=== PATIENT | female | born 1965 | race Caucasian/White ===

== ENCOUNTER 2021-09-06 12:21 | Inpatient (IN) | payer BC ==
[2021-09-06] MEDS ORDERED: Ondansetron 4 MG/2 ML SDV IV PRN (13:29)
[2021-09-06] MEDS ORDERED: Benzonatate 100 MG Cap PO PRN (13:29)
[2021-09-06] MEDS ORDERED: guaiFENesin/Dextromethorphan 100-10 MG/5 ML Soln 10 ML Cup PO PRN (13:29)
[2021-09-06] MEDS ORDERED: LORazepam 2 MG/ML SDV IV PRN (13:29)
[2021-09-06] MEDS ORDERED: Acetaminophen 325 MG Tab PO PRN (13:29)
[2021-09-06] MEDS ORDERED: Sodium Chloride 0.9% 10 ML Syringe FLUSH PRN (13:29)
[2021-09-06] MEDS ORDERED: Ondansetron 4 MG Tab.DIS PO PRN (13:29)
[2021-09-06] MEDS: Promethazine 25 MG Tab PO PRN ×2 (14:16→21:08)
--- NOTE | 2021-09-06 15:38 | PCM.HP.2 ---
H&P History of Present Illness - General Date of Service: 09/06/21 Admit Problem/Dx: Admission Diagnosis/Problem Admission Diagnosis/Problem Pneumonia Source of Information: Patient History Limitations: Reports: No Limitations - History of Present Illness Initial Comments - Free Text/Narative: CC: The diarrhea was horrible HPI: Madeleine was sent as a direct admission for management of hypoxic COVID-19 pneumonia. She first noticed symptoms last Thursday, August 28. She had sinus congestion, runny nose, headache, fevers and some shortness of breath. Symptoms progressed over the next couple of days and she tested positive for Covid on August 30. Symptoms worsened over the weekend and she was treated with monoclonal antibodies 2 days ago. After the infusion of monoclonal antibodies she had significant nausea and vomiting overnight. This did finally resolve morning but then she developed diarrhea and has had diarrhea since. She went to the clinic yesterday and was given 2 L of IV fluid because of significant dehydration. She continued to have diarrhea overnight and went back to the clinic today. They noticed that she was hypoxic today and sent her to the hospital for direct admission and management of hypoxia. She reports that all of her presenting symptoms have essentially resolved and its mostly of the vomiting and diarrhea that persist and are giving her trouble. Work-up in the clinic included some small patchy infiltrates noted on the chest x-ray as well as the hypoxia. - Related Data Allergies/Adverse Reactions: Allergies Allergy/AdvReac Type Severity Reaction Status Date / Time Bleach (Sodium Hypochlorite) Allergy Rash Verified 09/06/21 13:34 Penicillins Allergy Hives Verified 09/06/21 13:34 Home Medications: Home Meds Clobetasol [Clobetasol Propionate 0.05%] 30 gm TOP BID 09/06/21 [History] Famotidine 20 mg PO QAM 09/06/21 [History] Famotidine 30 mg PO BEDTIME 09/06/21 [History] Past Medical History HEENT History: Reports: Allergic Rhinitis Cardiovascular History: Reports: SOB on Exertion Respiratory History: Reports: Other (See Below) Other Respiratory History: covid Gastrointestinal History: Reports: GERD Genitourinary History: Reports: None 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 Musculoskeletal History: Reports: None Neurological History: Reports: None Psychiatric History: Reports: None Endocrine/Metabolic History: Reports: None Hematologic History: Reports: None Immunologic History: Reports: None Oncologic (Cancer) History: Reports: None Dermatologic History: Reports: None - Infectious Disease History Infectious Disease History: Reports: None - Past Surgical History Head Surgeries/Procedures: Reports: None HEENT Surgical History: Reports: None Cardiovascular Surgical History: Reports: None Respiratory Surgical History: Reports: None GI Surgical History: Reports: Colonoscopy Female Surgical History: Reports: None Endocrine Surgical History: Reports: None Neurological Surgical History: Reports: None Musculoskeletal Surgical History: Reports: None Oncologic Surgical History: Reports: None Dermatological Surgical History: Reports: None Social & Family History - Family History Oncologic: Reports: Colon (father), Skin (mother with melanoma) - Tobacco Use Tobacco Use Status *Q: Never Tobacco User Second Hand Smoke Exposure: No - Caffeine Use Caffeine Use: Reports: Coffee - Recreational Drug Use Recreational Drug Use: No H&P Review of Systems - Review of Systems: Review Of Systems: See Below Free Text/Narrative: A complete 12 point review of systems was obtained. Pertinent positives and negatives are noted in the history of present illness. All other systems were reviewed and were negative except as noted. Exam - Exam Exam: See Below - Vital Signs Vital Signs: Last Vital Signs Temp 36.9 C 09/06/21 13:25 Pulse 66 09/06/21 13:25 Resp 16 09/06/21 13:25 BP 133/73 09/06/21 13:25 Pulse Ox 95 09/06/21 13:30 Weight: 98.43 kg - Exam Quality Assessment: Supplemental Oxygen General: Alert, Oriented, Cooperative. No: Mild Distress HEENT: Conjunctiva Clear, Mucosa Moist & [place]. No: Scleral Icterus Neck: Supple, Trachea Midline Lungs: Normal Respiratory Effort, Crackles (Mild diffuse dry sounding crackles especially in the lower half of both lung torres) Cardiovascular: Regular Rate, Regular Rhythm, Systolic Murmur GI/Abdominal Exam: Normal Bowel Sounds, Soft, Non-Tender, No Distention Back Exam: Normal Inspection, Full Range of Motion Extremities: No Pedal Edema. No: Increased Warmth Peripheral Pulses: 2+: Dorsalis Pedis (L), Dorsalis Pedis (R) Skin: Warm, Dry Neuro Extensive - Mental Status: Alert, Oriented x3, Nl Response to Commands Neuro Extensive - Motor, Sensory, Reflexes: No: Dysarthria, Abnormal Motor, Tremor Psychiatric: Alert, Normal Affect - Patient Data Lab Results Last 24 hrs: Laboratory Results - last 24 hr 09/06/21 09/06/21 09/06/21 Range/Units 14:09 14:09 14:09 WBC 3.0 L (4.5-11.0) K/uL RBC 4.44 (3.30-5.50) M/uL Hgb 13.0 (12.0-15.0) g/dL Hct 38.3 (36.0-48.0) % MCV 86 (80-98) fL MCH 29 (27-31) pg MCHC 34 (32-36) % Plt Count 200 (150-400) K/uL Neut % (Auto) 63.0 (36-66) % Lymph % (Auto) 26.6 (24-44) % [place] % (Auto) 10.1 H (2-6) % Eos % (Auto) 0.0 L (2-4) % Baso % (Auto) 0.3 (0-1) % D-Dimer, Quantitative 728.49 H (0.0-500.0) ng/mL Sodium 145 (140-148) mmol/L Potassium 3.1 L (3.6-5.2) mmol/L Chloride 107 (100-108) mmol/L Carbon Dioxide 28 (21-32) mmol/L Anion Gap 13.1 (5.0-14.0) mmol/L BUN 8 (7-18) mg/dL Creatinine 0.7 (0.6-1.0) mg/dL Est Cr Clr Drug Dosing 91.55 mL/min Estimated GFR (MDRD) > 60 (>60) Glucose 85 (74-106) mg/dL Calcium 8.3 L (8.5-10.1) mg/dL Total Bilirubin 0.4 (0.2-1.0) mg/dL AST 45 H (15-37) U/L ALT 39 (12-78) U/L Alkaline Phosphatase 59 (46-116) U/L C-Reactive Protein (0.0-0.3) mg/dL Total Protein 5.8 L (6.4-8.2) g/dL Albumin 3.0 L (3.4-5.0) g/dL Globulin 2.8 (2.3-3.5) g/dL Albumin/Globulin Ratio 1.1 L (1.2-2.2) 09/06/21 Range/Units 14:09 WBC (4.5-11.0) K/uL RBC (3.30-5.50) M/uL Hgb (12.0-15.0) g/dL Hct (36.0-48.0) % MCV (80-98) fL MCH (27-31) pg MCHC (32-36) % Plt Count (150-400) K/uL Neut % (Auto) (36-66) % Lymph % (Auto) (24-44) % Davison % (Auto) (2-6) % Eos % (Auto) (2-4) % Baso % (Auto) (0-1) % D-Dimer, Quantitative (0.0-500.0) ng/mL Sodium (140-148) mmol/L Potassium (3.6-5.2) mmol/L Chloride (100-108) mmol/L Carbon Dioxide (21-32) mmol/L Anion Gap (5.0-14.0) mmol/L BUN (7-18) mg/dL Creatinine (0.6-1.0) mg/dL Est Cr Clr Drug Dosing mL/min Estimated GFR (MDRD) (>60) Glucose (74-106) mg/dL Calcium (8.5-10.1) mg/dL Total Bilirubin (0.2-1.0) mg/dL AST (15-37) U/L ALT (12-78) U/L Alkaline Phosphatase (46-116) U/L C-Reactive Protein 2.10 H (0.0-0.3) mg/dL Total Protein (6.4-8.2) g/dL Albumin (3.4-5.0) g/dL Globulin (2.3-3.5) g/dL Albumin/Globulin Ratio (1.2-2.2) Result Diagrams: 09/06/21 14:09 09/06/21 14:09 Imaging Impressions Last 24 hrs: Chest x-ray reported to have mild patchy changes in both lower lungs Sepsis Event Note - Evaluation Sepsis Screening Result: No Definite Risk - Focused Exam Vital Signs: Vital Signs Temp Pulse Resp BP Pulse Ox 09/06/21 13:30 95 09/06/21 13:25 36.9 C 66 16 133/73 93 L *Q Meaningful Use (ADM) - VTE Risk Assess *Q Each Risk Factor Represents 1 Point: Age 41 - 59 years, Obesity ( BMI > 25 kg/m2), Serious lung disease including pneumonia Total Score 1 Point Risk Factors: 3 Each Risk Factor Represents 2 Points: None Total Score 2 Point Risk Factors: 0 Each Risk Factor Represents 3 Points: None Total Score 3 Point Risk Factors: 0 Each Risk Factor Represents 5 Points: None Total Score 5 Point Risk Factors: 0 Venous Thromboembolism Risk Factor Score *Q: 3 - Problem List (1) Pneumonia due to COVID-19 virus SNOMED Code(s): 319269564484656661 ICD Code: U07.1 - COVID-19; J12.82 - PNEUMONIA DUE TO CORONAVIRUS DISEASE 2 019 Status: Acute Current Visit: Yes (2) Acute respiratory failure due to COVID-19 SNOMED Code(s): 529468399 ICD Code: U07.1 - COVID-19; J96.00 - ACUTE RESPIRATORY FAILURE, UNSP W HYPOXIA OR HYPERCAPNIA Status: Acute Current Visit: Yes (3) Hypokalemia due to excessive gastrointestinal loss of potassium SNOMED Code(s): 61382872 ICD Code: E87.6 - HYPOKALEMIA Status: Acute Current Visit: Yes (4) Obesity with body mass index greater than 30 SNOMED Code(s): 357373637 ICD Code: E66.9 - OBESITY, UNSPECIFIED Status: Chronic Current Visit: Yes Problem List Initiated/Reviewed/Updated: Yes Orders Last 24hrs: Active Orders 24 hr Category Date Time Status Patient Status [ADT] Routine ADT 09/06/21 13:29 Active Oxygen Therapy [RC] PRN Care 09/06/21 13:29 Active Pulse Oximetry [RC] CONTINUOUS Care 09/06/21 13:30 Active Up With Assistance [RC] ASDIRECTED Care 09/06/21 13:29 Active Vital Signs [RC] Q4H Care 09/06/21 13:29 Active Regular Diet [DIET] Diet 09/06/21 Dinner Active COMPREHENSIVE METABOLIC PN,CMP [CHEM] Timed Lab 09/07/21 05:00 Ordered Acetaminophen [TylenoL] Med 09/06/21 13:29 Active 650 mg PO Q4H PRN Benzonatate [Tessalon Perles] Med 09/06/21 13:29 Active 100 mg PO TID PRN Dextromethorphan/guaiFENesin [Robitussin DM] Med 09/06/21 13:29 Active 10 ml PO Q4H PRN Enoxaparin [Lovenox] Med 09/06/21 15:00 Active 40 mg SUBCUT Q24H LORazepam [Ativan] Med 09/06/21 13:29 Active 0.5 mg IV Q6H PRN Ondansetron [Zofran ODT] Med 09/06/21 13:29 Active 4 mg PO Q6H PRN Ondansetron [Zofran] Med 09/06/21 13:29 Active 4 mg IV Q4H PRN Potassium Chloride [Klor-Con M20] Med 09/06/21 15:45 Ordered 40 meq PO BID Promethazine [Phenergan] Med 09/06/21 13:29 Active 25 mg PO Q6H PRN Remdesivir 100 mg Med 09/07/21 16:00 Ordered Sodium Chloride 0.9% [Normal Saline] 100 ml IV Q24H Remdesivir 200 mg Med 09/06/21 15:35 Ordered Sodium Chloride 0.9% [Normal Saline] 250 ml IV ONETIME Sodium Chloride 0.9% [Saline Flush] Med 09/06/21 13:29 Active 10 ml FLUSH ASDIRECTED PRN dexAMETHasone [Decadron] Med 09/06/21 15:00 Active 6 mg IVPUSH Q24H Isolation [COMM] Routine Oth 09/06/21 13:34 Ordered Saline Lock Insert [OM.PC] Routine Oth 09/06/21 13:29 Ordered Resuscitation Status Routine Resus Stat 09/06/21 13:29 Ordered Medication Orders Acetaminophen (Acetaminophen 325 Mg Tab) 650 mg PO Q4H PRN PRN Reason: Pain (Mild 1-3)/fever Benzonatate (Benzonatate 100 Mg Cap) 100 mg PO TID PRN PRN Reason: Cough Dexamethasone (Dexamethasone 4 Mg/Ml Sdv) 6 mg IVPUSH Q24H [facility] Enoxaparin Sodium (Enoxaparin 40 Mg/0.4 Ml Syringe) 40 mg SUBCUT Q24H [facility] Guaifenesin/Dextromethorphan (Guaifenesin/Dextromethorphan 100-10 Mg/5 Ml Soln 10 Ml Cup) 10 ml PO Q4H PRN PRN Reason: Cough Remdesivir 100 mg/ Sodium (Chloride) 100 mls @ 100 mls/hr IV Q24H [facility] Stop: 09/10/21 16:59 Remdesivir 200 mg/ Sodium (Chloride) 250 mls @ 250 mls/hr IV ONETIME ONE Stop: 09/06/21 15:36 Lorazepam (Lorazepam 2 Mg/Ml Sdv) 0.5 mg IV Q6H PRN PRN Reason: Nausea/Vomiting Ondansetron HCl (Ondansetron 4 Mg Tab.Dis) 4 mg PO Q6H PRN PRN Reason: Nausea able to take PO Ondansetron HCl (Ondansetron 4 Mg/2 Ml Sdv) 4 mg IV Q4H PRN PRN Reason: Nausea/Vomiting Potassium Chloride (Potassium Chloride 20 Meq Tab.Er) 40 meq PO BID [facility] Stop: 09/06/21 21:01 Promethazine HCl (Promethazine 25 Mg Tab) 25 mg PO Q6H PRN PRN Reason: Nausea able to take PO Last Admin: 09/06/21 14:16 Dose: 25 mg Documented by: MASOUD Sodium Chloride (Sodium Chloride 0.9% 10 Ml Syringe) 10 ml FLUSH ASDIRECTED PRN PRN Reason: Keep Vein Open Assessment/Plan Comment:: ASSESSMENT AND PLAN - COVID-19 pneumonia-complicated by acute respiratory failure with hypoxia. Symptoms present for 9 or 10 days with progression over the past 48 hours. She did receive monoclonal antibodies 2 days ago. She is now hypoxic. Vitals otherwise stable. Main risk factor for progression to severe disease is her obesity. We did review potential treatments for management of COVID-19 pneu monia and she was agreeable to dexamethasone and remdesivir. She did ask about ivermectin. I discussed that this is not an approved medication to treat this infection and the risks far outweigh any potential benefits. -Dexamethasone 6 mg every 24 hours (day1) -Remdesivir x5 days -Enoxaparin every 24 hours -Symptomatic management of cough -Supplement oxygen, wean as able -Covid isolation (symptom onset/positive test 08/28 and 08/30) Hypokalemia-likely due to extra gastrointestinal losses. -40 mEq by mouth now and at bedtime Obesity with BMI greater than 30- Maintenance issues - -DVT prophylaxis-enoxaparin -GI prophylaxis-H2 rhoda -Nutrition-regular -Stinson catheter-not indicated CODE STATUS -full code Admission justification -this patient will be admitted for inpatient services and is medically appropriate meeting medical necessity for inpatient admission as outlined in my documentation. I reasonably expect the patient will require inpatient services that span a period time over 2 midnights. I reasonably expect this patient to be discharged or transferred within 96 hours after admission to the [facility]. Disposition -I anticipate discharge home after the hospital stay Primary care physician -Dr. Jose Adams M.D. - Mortality Measure Prognosis:: Good
[2021-09-06] MEDS ORDERED: REMDESIVIR 200 MG in Sodium Chloride 0.9% 250 ML IV ONE (16:00)
[2021-09-06] MEDS: Dexamethasone 4 MG/ML SDV IVPUSH SCH (16:30)
[2021-09-06] MEDS: Potassium Chloride 20 MEQ Tab.ER PO SCH ×2 (16:30→20:58)
[2021-09-06] MEDS: Enoxaparin 40 MG/0.4 ML Syringe SUBCUT SCH (16:30)
[2021-09-07] MEDS: Promethazine 25 MG Tab PO PRN (05:51)
--- NOTE | 2021-09-07 11:21 | PCM.PN ---
- General Info Date of Service: 09/07/21 Subjective Update: No acute events overnight. No fevers. Still requiring 2 L of oxygen but otherwise stable. Mild nausea and mild diarrhea this morning but much improved. Tolerating treatment so far. Follow-up labs unremarkable. - Review of Systems General: Denies: Fever Gastrointestinal: Reports: Diarrhea - Patient Data Vitals - Most Recent: Last Vital Signs Temp 36.3 C 09/07/21 10:36 Pulse 64 09/07/21 10:36 Resp 18 09/07/21 10:36 BP 111/81 09/07/21 10:36 Pulse Ox 93 L 09/07/21 10:36 Weight - Most Recent: 98.43 kg I&O - Last 24 Hours: Intake & Output 09/06/21 09/07/21 09/07/21 22:59 06:59 14:59 Intake Total 300 500 Output Total 200 350 100 Balance -200 -50 400 Lab Results Last 24 Hours: Laboratory Results - last 24 hr 09/06/21 09/06/21 09/06/21 Range/Units 14:09 14:09 14:09 WBC 3.0 L (4.5-11.0) K/uL RBC 4.44 (3.30-5.50) M/uL Hgb 13.0 (12.0-15.0) g/dL Hct 38.3 (36.0-48.0) % MCV 86 (80-98) fL MCH 29 (27-31) pg MCHC 34 (32-36) % Plt Count 200 (150-400) K/uL Neut % (Auto) 63.0 (36-66) % Lymph % (Auto) 26.6 (24-44) % [place] % (Auto) 10.1 H (2-6) % Eos % (Auto) 0.0 L (2-4) % Baso % (Auto) 0.3 (0-1) % D-Dimer, Quantitative 728.49 H (0.0-500.0) ng/mL Sodium 145 (140-148) mmol/L Potassium 3.1 L (3.6-5.2) mmol/L Chloride 107 (100-108) mmol/L Carbon Dioxide 28 (21-32) mmol/L Anion Gap 13.1 (5.0-14.0) mmol/L BUN 8 (7-18) mg/dL Creatinine 0.7 (0.6-1.0) mg/dL Est Cr Clr Drug Dosing 91.55 mL/min Estimated GFR (MDRD) > 60 (>60) Glucose 85 (74-106) mg/dL Calcium 8.3 L (8.5-10.1) mg/dL Total Bilirubin 0.4 (0.2-1.0) mg/dL AST 45 H (15-37) U/L ALT 39 (12-78) U/L Alkaline Phosphatase 59 (46-116) U/L C-Reactive Protein (0.0-0.3) mg/dL Total Protein 5.8 L (6.4-8.2) g/dL Albumin 3.0 L (3.4-5.0) g/dL Globulin 2.8 (2.3-3.5) g/dL Albumin/Globulin Ratio 1.1 L (1.2-2.2) 09/06/21 09/07/21 Range/Units 14:09 04:20 WBC (4.5-11.0) K/uL RBC (3.30-5.50) M/uL Hgb (12.0-15.0) g/dL Hct (36.0-48.0) % MCV (80-98) fL MCH (27-31) pg MCHC (32-36) % Plt Count (150-400) K/uL Neut % (Auto) (36-66) % Lymph % (Auto) (24-44) % [place] % (Auto) (2-6) % Eos % (Auto) (2-4) % Baso % (Auto) (0-1) % D-Dimer, Quantitative (0.0-500.0) ng/mL Sodium 147 (140-148) mmol/L Potassium 4.1 (3.6-5.2) mmol/L Chloride 109 H (100-108) mmol/L Carbon Dioxide 27 (21-32) mmol/L Anion Gap 15.1 H (5.0-14.0) mmol/L BUN 12 (7-18) mg/dL Creatinine 0.7 (0.6-1.0) mg/dL Est Cr Clr Drug Dosing 91.55 mL/min Estimated GFR (MDRD) > 60 (>60) Glucose 109 H (74-106) mg/dL Calcium 8.2 L (8.5-10.1) mg/dL Total Bilirubin 0.3 (0.2-1.0) mg/dL AST 41 H (15-37) U/L ALT 43 (12-78) U/L Alkaline Phosphatase 57 (46-116) U/L C-Reactive Protein 2.10 H (0.0-0.3) mg/dL Total Protein 5.5 L (6.4-8.2) g/dL Albumin 2.7 L (3.4-5.0) g/dL Globulin 2.8 (2.3-3.5) g/dL Albumin/Globulin Ratio 1.0 L (1.2-2.2) Med Orders - Current: Current Medications Acetaminophen (Acetaminophen 325 Mg Tab) 650 mg PO Q4H PRN PRN Reason: Pain (Mild 1-3)/fever Benzonatate (Benzonatate 100 Mg Cap) 100 mg PO TID PRN PRN Reason: Cough Dexamethasone (Dexamethasone 4 Mg/Ml Sdv) 6 mg IVPUSH Q24H [facility] Last Admin: 09/06/21 16:30 Dose: 6 mg Documented by: Enoxaparin Sodium (Enoxaparin 40 Mg/0.4 Ml Syringe) 40 mg SUBCUT Q24H [facility] Last Admin: 09/06/21 16:30 Dose: 40 mg Documented by: Famotidine (Famotidine 20 Mg Tab) 20 mg PO QAM [facility] Guaifenesin/Dextromethorphan (Guaifenesin/Dextromethorphan 100-10 Mg/5 Ml Soln 10 Ml Cup) 10 ml PO Q4H PRN PRN Reason: Cough Remdesivir 100 mg/ Sodium (Chloride) 100 mls @ 100 mls/hr IV Q24H [facility] Stop: 09/10/21 16:59 Lorazepam (Lorazepam 2 Mg/Ml Sdv) 0.5 mg IV Q6H PRN PRN Reason: Nausea/Vomiting Non-Formulary Medication (Famotidine [Famotidine]) 30 mg PO BEDTIME [facility] Ondansetron HCl (Ondansetron 4 Mg Tab.Dis) 4 mg PO Q6H PRN PRN Reason: Nausea able to take PO Ondansetron HCl (Ondansetron 4 Mg/2 Ml Sdv) 4 mg IV Q4H PRN PRN Reason: Nausea/Vomiting Promethazine HCl (Promethazine 25 Mg Tab) 25 mg PO Q6H PRN PRN Reason: Nausea able to take PO Last Admin: 09/07/21 05:51 Dose: 25 mg Documented by: Sodium Chloride (Sodium Chloride 0.9% 10 Ml Syringe) 10 ml FLUSH ASDIRECTED PRN PRN Reason: Keep Vein Open Discontinued Medications Remdesivir 200 mg/ Sodium (Chloride) 250 mls @ 250 mls/hr IV ONETIME ONE Stop: 09/06/21 16:59 Last Admin: 09/06/21 16:30 Dose: 250 mls/hr Documented by: Potassium Chloride (Potassium Chloride 20 Meq Tab.Er) 40 meq PO BID [facility] Stop: 09/06/21 21:01 Last Admin: 09/06/21 20:58 Dose: 40 meq Documented by: - Exam Quality Assessment: Supplemental Oxygen General: Alert, Oriented, Cooperative, No Acute Distress Lungs: Normal Respiratory Effort GI/Abdominal Exam: Soft, No Distention Extremities: No Pedal Edema Psy/Mental Status: Alert, Normal Affect - Patient Data Lab Results Last 24 hrs: Laboratory Results - last 24 hr 09/06/21 09/06/21 09/06/21 Range/Units 14:09 14:09 14:09 WBC 3.0 L (4.5-11.0) K/uL RBC 4.44 (3.30-5.50) M/uL Hgb 13.0 (12.0-15.0) g/dL Hct 38.3 (36.0-48.0) % MCV 86 (80-98) fL MCH 29 (27-31) pg MCHC 34 (32-36) % Plt Count 200 (150-400) K/uL Neut % (Auto) 63.0 (36-66) % Lymph % (Auto) 26.6 (24-44) % [place] % (Auto) 10.1 H (2-6) % Eos % (Auto) 0.0 L (2-4) % Baso % (Auto) 0.3 (0-1) % D-Dimer, Quantitative 728.49 H (0.0-500.0) ng/mL Sodium 145 (140-148) mmol/L Potassium 3.1 L (3.6-5.2) mmol/L Chloride 107 (100-108) mmol/L Carbon Dioxide 28 (21-32) mmol/L Anion Gap 13.1 (5.0-14.0) mmol/L BUN 8 (7-18) mg/dL Creatinine 0.7 (0.6-1.0) mg/dL Est Cr Clr Drug Dosing 91.55 mL/min Estimated GFR (MDRD) > 60 (>60) Glucose 85 (74-106) mg/dL Calcium 8.3 L (8.5-10.1) mg/dL Total Bilirubin 0.4 (0.2-1.0) mg/dL AST 45 H (15-37) U/L ALT 39 (12-78) U/L Alkaline Phosphatase 59 (46-116) U/L C-Reactive Protein (0.0-0.3) mg/dL Total Protein 5.8 L (6.4-8.2) g/dL Albumin 3.0 L (3.4-5.0) g/dL Globulin 2.8 (2.3-3.5) g/dL Albumin/Globulin Ratio 1.1 L (1.2-2.2) 09/06/21 09/07/21 Range/Units 14:09 04:20 WBC (4.5-11.0) K/uL RBC (3.30-5.50) M/uL Hgb (12.0-15.0) g/dL Hct (36.0-48.0) % MCV (80-98) fL MCH (27-31) pg MCHC (32-36) % Plt Count (150-400) K/uL Neut % (Auto) (36-66) % Lymph % (Auto) (24-44) % [place] % (Auto) (2-6) % Eos % (Auto) (2-4) % Baso % (Auto) (0-1) % D-Dimer, Quantitative (0.0-500.0) ng/mL Sodium 147 (140-148) mmol/L Potassium 4.1 (3.6-5.2) mmol/L Chloride 109 H (100-108) mmol/L Carbon Dioxide 27 (21-32) mmol/L Anion Gap 15.1 H (5.0-14.0) mmol/L BUN 12 (7-18) mg/dL Creatinine 0.7 (0.6-1.0) mg/dL Est Cr Clr Drug Dosing 91.55 mL/min Estimated GFR (MDRD) > 60 (>60) Glucose 109 H (74-106) mg/dL Calcium 8.2 L (8.5-10.1) mg/dL Total Bilirubin 0.3 (0.2-1.0) mg/dL AST 41 H (15-37) U/L ALT 43 (12-78) U/L Alkaline Phosphatase 57 (46-116) U/L C-Reactive Protein 2.10 H (0.0-0.3) mg/dL Total Protein 5.5 L (6.4-8.2) g/dL Albumin 2.7 L (3.4-5.0) g/dL Globulin 2.8 (2.3-3.5) g/dL Albumin/Globulin Ratio 1.0 L (1.2-2.2) Result Diagrams: 09/06/21 14:09 09/07/21 04:20 Sepsis Event Note - Evaluation Sepsis Screening Result: No Definite Risk - Focused Exam Vital Signs: Vital Signs Temp Pulse Resp BP Pulse Ox 09/07/21 10:36 36.3 C 64 18 111/81 93 L 09/07/21 07:22 94 L 09/07/21 07:00 36.3 C 61 18 127/72 95 09/07/21 03:00 36.7 C 62 16 142/73 H 94 L 09/07/21 01:30 94 L - Problem List & Annotations (1) Pneumonia due to COVID-19 virus SNOMED Code(s): 033829464380393131 Code(s): U07.1 - COVID-19; J12.82 - PNEUMONIA DUE TO CORONAVIRUS DISEASE 2019 Status: Acute Current Visit: Yes (2) Acute respiratory failure due to COVID-19 SNOMED Code(s): 679661082 Code(s): U07.1 - COVID-19; J96.00 - ACUTE RESPIRATORY FAILURE, UNSP W HYPOXIA OR HYPERCAPNIA Status: Acute Current Visit: Yes (3) Hypokalemia due to excessive gastrointestinal loss of potassium SNOMED Code(s): 45811065 Code(s): E87.6 - HYPOKALEMIA Status: Acute Current Visit: Yes (4) Obesity with body mass index greater than 30 SNOMED Code(s): 646234538 Code(s): E66.9 - OBESITY, UNSPECIFIED Status: Chronic Current Visit: Yes - Problem List Review Problem List Initiated/Reviewed/Updated: Yes - My Orders Last 24 Hours: My Active Orders 09/06/21 13:29 Patient Status [ADT] Routine Oxygen Therapy [RC] PRN Up With Assistance [RC] ASDIRECTED Vital Signs [RC] Q4H Acetaminophen [TylenoL] 650 mg PO Q4H PRN Benzonatate [Tessalon Perles] 100 mg PO TID PRN Dextromethorphan/guaiFENesin [Robitussin DM] 10 ml PO Q4H PRN LORazepam [Ativan] 0.5 mg IV Q6H PRN Ondansetron [Zofran ODT] 4 mg PO Q6H PRN Ondansetron [Zofran] 4 mg IV Q4H PRN Promethazine [Phenergan] 25 mg PO Q6H PRN Sodium Chloride 0.9% [Saline Flush] 10 ml FLUSH ASDIRECTED PRN Saline Lock Insert [OM.PC] Routine Resuscitation Status Routine 09/06/21 13:30 Pulse Oximetry [RC] CONTINUOUS 09/06/21 13:34 Isolation [COMM] Routine 09/06/21 15:00 Enoxaparin [Lovenox] 40 mg SUBCUT Q24H dexAMETHasone [Decadron] 6 mg IVPUSH Q24H 09/06/21 Dinner Regular Diet [DIET] 09/07/21 12:00 Famotidine [Pepcid] 20 mg PO QAM 09/07/21 16:00 Remdesivir 100 mg Sodium Chloride 0.9% [Normal Saline] 100 ml IV Q24H 09/07/21 21:00 Famotidine [Famotidine] 30 mg PO BEDTIME 09/08/21 05:00 CBC W/O DIFF,HEMOGRAM [HEME] Timed (1) COMPREHENSIVE METABOLIC PN,CMP [CHEM] Timed CRP [C-REACTIVE PROTEIN] [CHEM] Timed D-DIMER QUANTITATIVE [COAG] Timed - Plan Plan:: ASSESSMENT AND PLAN - COVID-19 pneumonia-complicated by acute respiratory failure with hypoxia. She did receive monoclonal antibodies 09/04. Hypoxic but otherwise stable. Feeling a little better today. -Dexamethasone 6 mg every 24 hours (day2) -Remdesivir x5 days -Enoxaparin every 24 hours -Symptomatic management of cough -Supplement oxygen, wean as able -Covid isolation (symptom onset/positive test 08/28 and 08/30) Hypokalemia-likely due to extra gastrointestinal losses. Improved with supplementation. Obesity with BMI greater than 30- Maintenance issues - -DVT prophylaxis-enoxaparin -GI prophylaxis-H2 rhoda -Nutrition-regular Disposition -I anticipate discharge home after the hospital stay Primary care physician -Dr. Jose Adams M.D.
[2021-09-07] MEDS: Famotidine 20 MG Tab PO SCH ×2 (13:28→20:36)
[2021-09-07] MEDS: REMDESIVIR 100 MG in Sodium Chloride 0.9% 100 ML IV SCH (17:55)
[2021-09-07] MEDS: Enoxaparin 40 MG/0.4 ML Syringe SUBCUT SCH (17:55)
[2021-09-07] MEDS: Dexamethasone 4 MG/ML SDV IVPUSH SCH (17:56)
[2021-09-08] MEDS: Famotidine 20 MG Tab PO SCH ×2 (08:15→20:54)
--- NOTE | 2021-09-08 11:54 | PCM.PN ---
- General Info Date of Service: 09/08/21 Subjective Update: No acute events overnight. Shortness of breath slowly improving. Still requiring 1 L of supplemental oxygen which is better than yesterday. Nausea and diarrhea have resolved. Appetite good. No fevers. Tolerating remdesivir and steroids. D-dimer is now normal and CRP is nearly normal. Functional Status: Reports: Pain Controlled, Tolerating Diet - Review of Systems General: Denies: Fever - Patient Data Vitals - Most Recent: Last Vital Signs Temp 35.9 C L 09/08/21 10:32 Pulse 66 09/08/21 10:32 Resp 18 09/08/21 10:32 BP 129/71 09/08/21 10:32 Pulse Ox 92 L 09/08/21 10:32 Weight - Most Recent: 98.43 kg I&O - Last 24 Hours: Intake & Output 09/07/21 09/08/21 09/08/21 22:59 06:59 14:59 Intake Total 600 300 260 Balance 600 300 260 Lab Results Last 24 Hours: Laboratory Results - last 24 hr 09/08/21 09/08/21 09/08/21 Range/Units 04:10 04:10 04:10 WBC 2.4 L (4.5-11.0) K/uL RBC 4.48 (3.30-5.50) M/uL Hgb 12.8 (12.0-15.0) g/dL Hct 39.4 (36.0-48.0) % MCV 88 (80-98) fL MCH 29 (27-31) pg MCHC 33 (32-36) % Plt Count 251 (150-400) K/uL D-Dimer, Quantitative 482.40 (0.0-500.0) ng/mL Sodium 149 H (140-148) mmol/L Potassium 4.3 (3.6-5.2) mmol/L Chloride 111 H (100-108) mmol/L Carbon Dioxide 27 (21-32) mmol/L Anion Gap 15.3 H (5.0-14.0) mmol/L BUN 19 H D (7-18) mg/dL Creatinine 0.8 (0.6-1.0) mg/dL Est Cr Clr Drug Dosing 80.11 mL/min Estimated GFR (MDRD) > 60 (>60) Glucose 152 H (74-106) mg/dL Calcium 8.3 L (8.5-10.1) mg/dL Total Bilirubin 0.2 (0.2-1.0) mg/dL AST 37 (15-37) U/L ALT 63 (12-78) U/L Alkaline Phosphatase 60 (46-116) U/L C-Reactive Protein 0.70 H (0.0-0.3) mg/dL Total Protein 5.7 L (6.4-8.2) g/dL Albumin 2.8 L (3.4-5.0) g/dL Globulin 2.9 (2.3-3.5) g/dL Albumin/Globulin Ratio 1.0 L (1.2-2.2) Med Orders - Current: Current Medications Acetaminophen (Acetaminophen 325 Mg Tab) 650 mg PO Q4H PRN PRN Reason: Pain (Mild 1-3)/fever Benzonatate (Benzonatate 100 Mg Cap) 100 mg PO TID PRN PRN Reason: Cough Dexamethasone (Dexamethasone 2 Mg Tab) 6 mg PO Q24H [facility] Enoxaparin Sodium (Enoxaparin 40 Mg/0.4 Ml Syringe) 40 mg SUBCUT Q24H [facility] Last Admin: 09/07/21 17:55 Dose: 40 mg Documented by: Famotidine (Famotidine 20 Mg Tab) 30 mg PO BEDTIME [facility] Last Admin: 09/07/21 20:36 Dose: 30 mg Documented by: Famotidine (Famotidine 20 Mg Tab) 20 mg PO QAM [facility] Last Admin: 09/08/21 08:15 Dose: 20 mg Documented by: Guaifenesin/Dextromethorphan (Guaifenesin/Dextromethorphan 100-10 Mg/5 Ml Soln 10 Ml Cup) 10 ml PO Q4H PRN PRN Reason: Cough Last Admin: 09/08/21 08:25 Dose: 10 ml Documented by: Remdesivir 100 mg/ Sodium (Chloride) 100 mls @ 100 mls/hr IV Q24H [facility] Stop: 09/10/21 16:59 Last Admin: 09/07/21 17:55 Dose: 100 mls/hr Documented by: Lorazepam (Lorazepam 2 Mg/Ml Sdv) 0.5 mg IV Q6H PRN PRN Reason: Nausea/Vomiting Ondansetron HCl (Ondansetron 4 Mg Tab.Dis) 4 mg PO Q6H PRN PRN Reason: Nausea able to take PO Ondansetron HCl (Ondansetron 4 Mg/2 Ml Sdv) 4 mg IV Q4H PRN PRN Reason: Nausea/Vomiting Promethazine HCl (Promethazine 25 Mg Tab) 25 mg PO Q6H PRN PRN Reason: Nausea able to take PO Last Admin: 09/07/21 05:51 Dose: 25 mg Documented by: Sodium Chloride (Sodium Chloride 0.9% 10 Ml Syringe) 10 ml FLUSH ASDIRECTED PRN PRN Reason: Keep Vein Open Discontinued Medications Dexamethasone (Dexamethasone 4 Mg/Ml Sdv) 6 mg IVPUSH Q24H [facility] Last Admin: 09/07/21 17:56 Dose: 6 mg Documented by: Remdesivir 200 mg/ Sodium (Chloride) 250 mls @ 250 mls/hr IV ONETIME ONE Stop: 09/06/21 16:59 Last Admin: 09/06/21 16:30 Dose: 250 mls/hr Documented by: Potassium Chloride (Potassium Chloride 20 Meq Tab.Er) 40 meq PO BID [facility] Stop: 09/06/21 21:01 Last Admin: 09/06/21 20:58 Dose: 40 meq Documented by: - Exam Quality Assessment: Supplemental Oxygen General: Alert, Oriented, Cooperative, No Acute Distress Lungs: Normal Respiratory Effort, Crackles (few both lower lungs) Cardiovascular: Regular Rate, Regular Rhythm GI/Abdominal Exam: Soft, No Distention Extremities: No Pedal Edema Skin: Warm, Dry Psy/Mental Status: Alert, Normal Affect - Patient Data Lab Results Last 24 hrs: Laboratory Results - last 24 hr 09/08/21 09/08/21 09/08/21 Range/Units 04:10 04:10 04:10 WBC 2.4 L (4.5-11.0) K/uL RBC 4.48 (3.30-5.50) M/uL Hgb 12.8 (12.0-15.0) g/dL Hct 39.4 (36.0-48.0) % MCV 88 (80-98) fL MCH 29 (27-31) pg MCHC 33 (32-36) % Plt Count 251 (150-400) K/uL D-Dimer, Quantitative 482.40 (0.0-500.0) ng/mL Sodium 149 H (140-148) mmol/L Potassium 4.3 (3.6-5.2) mmol/L Chloride 111 H (100-108) mmol/L Carbon Dioxide 27 (21-32) mmol/L Anion Gap 15.3 H (5.0-14.0) mmol/L BUN 19 H D (7-18) mg/dL Creatinine 0.8 (0.6-1.0) mg/dL Est Cr Clr Drug Dosing 80.11 mL/min Estimated GFR (MDRD) > 60 (>60) Glucose 152 H (74-106) mg/dL Calcium 8.3 L (8.5-10.1) mg/dL Total Bilirubin 0.2 (0.2-1.0) mg/dL AST 37 (15-37) U/L ALT 63 (12-78) U/L Alkaline Phosphatase 60 (46-116) U/L C-Reactive Protein 0.70 H (0.0-0.3) mg/dL Total Protein 5.7 L (6.4-8.2) g/dL Albumin 2.8 L (3.4-5.0) g/dL Globulin 2.9 (2.3-3.5) g/dL Albumin/Globulin Ratio 1.0 L (1.2-2.2) Result Diagrams: 09/08/21 04:10 09/08/21 04:10 Sepsis Event Note - Evaluation Sepsis Screening Result: No Definite Risk - Focused Exam Vital Signs: Vital Signs Temp Pulse Resp BP Pulse Ox 09/08/21 10:32 35.9 C L 66 18 129/71 92 L 09/08/21 07:48 93 L 09/08/21 07:00 36.1 C 68 18 139/89 92 L 09/08/21 03:09 92 L 09/08/21 03:00 36.4 C 65 16 125/68 93 L - Problem List & Annotations (1) Pneumonia due to COVID-19 virus SNOMED Code(s): 700980977322311900 Code(s): U07.1 - COVID-19; J12.82 - PNEUMONIA DUE TO CORONAVIRUS DISEASE 2019 Status: Acute Current Visit: Yes (2) Acute respiratory failure due to COVID-19 SNOMED Code(s): 275468376 Code(s): U07.1 - COVID-19; J96.00 - ACUTE RESPIRATORY FAILURE, UNSP W HYPOXIA OR HYPERCAPNIA Status: Acute Current Visit: Yes (3) Hypokalemia due to excessive gastrointestinal loss of potassium SNOMED Code(s): 29745814 Code(s): E87.6 - HYPOKALEMIA Status: Acute Current Visit: Yes (4) Obesity with body mass index greater than 30 SNOMED Code(s): 946875059 Code(s): E66.9 - OBESITY, UNSPECIFIED Status: Chronic Current Visit: Yes - Problem List Review Problem List Initiated/Reviewed/Updated: Yes - My Orders Last 24 Hours: My Active Orders 09/07/21 12:00 Famotidine [Pepcid] 20 mg PO QAM 09/07/21 16:00 Remdesivir 100 mg Sodium Chloride 0.9% [Normal Saline] 100 ml IV Q24H 09/07/21 21:00 Famotidine [Pepcid] 30 mg PO BEDTIME 09/08/21 15:00 dexAMETHasone 6 mg PO Q24H 09/09/21 05:00 COMPREHENSIVE METABOLIC PN,CMP [CHEM] Timed - Plan Plan:: ASSESSMENT AND PLAN - COVID-19 pneumonia-complicated by acute respiratory failure with hypoxia. She did receive monoclonal antibodies 09/04. Still mildly hypoxic but slowly improving. D-dimer and CRP are normal or nearly normal. -Dexamethasone 6 mg every 24 hours (day3) -Remdesivir x5 days -Enoxaparin every 24 hours -Symptomatic management of cough -Supplement oxygen, wean as able -Covid isolation (symptom onset/positive test 08/28 and 08/30) Hypokalemia-likely due to extra gastrointestinal losses. Improved with supplementation. Obesity with BMI greater than 30- Maintenance issues - -DVT prophylaxis-enoxaparin -GI prophylaxis-H2 rhoda -Nutrition-regular Disposition -I anticipate discharge home after the hospital stay, possibly in the next day or 2 with her current trend towards improvement Primary care physician -Dr. Jose Adams M.D.
[2021-09-08] MEDS: Dexamethasone 2 MG Tab PO SCH (15:28)
[2021-09-08] MEDS: Enoxaparin 40 MG/0.4 ML Syringe SUBCUT SCH (15:28)
[2021-09-08] MEDS: REMDESIVIR 100 MG in Sodium Chloride 0.9% 100 ML IV SCH (15:29)
[2021-09-09] MEDS: Famotidine 20 MG Tab PO SCH ×2 (08:35→21:03)
[2021-09-09] MEDS: Dexamethasone 2 MG Tab PO SCH (15:19)
[2021-09-09] MEDS: Enoxaparin 40 MG/0.4 ML Syringe SUBCUT SCH (15:20)
[2021-09-09] MEDS: REMDESIVIR 100 MG in Sodium Chloride 0.9% 100 ML IV SCH (15:20)
--- NOTE | 2021-09-09 21:16 | PCM.PN ---
- General Info Date of Service: 09/09/21 Admission Dx/Problem (Free Text): Admission Diagnosis/Problem Admission Diagnosis/Problem Pneumonia Subjective Update: Ms. Garrido is doing great today. She is no longer requiring supplemental oxygen. She did want to go home today but realized that she had 1 more dose of remdesivir which she will receive tomorrow. She is willing to wait to go home until she has completed her doses. She has no complaints. - Review of Systems General: Reports: No Symptoms HEENT: Reports: No Symptoms Pulmonary: Reports: No Symptoms Cardiovascular: Reports: No Symptoms Gastrointestinal: Reports: No Symptoms Genitourinary: Reports: No Symptoms Musculoskeletal: Reports: No Symptoms Skin: Reports: No Symptoms Neurological: Reports: No Symptoms Psychiatric: Reports: No Symptoms - Patient Data Vitals - Most Recent: Last Vital Signs Temp 97.6 F 09/09/21 19:33 Pulse 67 09/09/21 19:33 Resp 16 09/09/21 19:33 BP 133/80 09/09/21 19:33 Pulse Ox 95 09/09/21 19:33 Weight - Most Recent: 217 lb 0.016 oz I&O - Last 24 Hours: Intake & Output 09/09/21 09/09/21 09/09/21 06:59 14:59 22:59 Intake Total 450 Balance 450 Lab Results Last 24 Hours: Laboratory Results - last 24 hr 09/09/21 Range/Units 04:30 Sodium 146 (140-148) mmol/L Potassium 4.2 (3.6-5.2) mmol/L Chloride 107 (100-108) mmol/L Carbon Dioxide 28 (21-32) mmol/L Anion Gap 11.5 (5.0-14.0) mmol/L BUN 15 (7-18) mg/dL Creatinine 0.7 (0.6-1.0) mg/dL Est Cr Clr Drug Dosing 91.22 mL/min Estimated GFR (MDRD) > 60 (>60) Glucose 125 H (74-106) mg/dL Calcium 8.2 L (8.5-10.1) mg/dL Total Bilirubin 0.4 D (0.2-1.0) mg/dL AST 27 (15-37) U/L ALT 54 (12-78) U/L Alkaline Phosphatase 59 (46-116) U/L Total Protein 5.4 L (6.4-8.2) g/dL Albumin 2.8 L (3.4-5.0) g/dL Globulin 2.6 (2.3-3.5) g/dL Albumin/Globulin Ratio 1.1 L (1.2-2.2) Med Orders - Current: Current Medications Acetaminophen (Acetaminophen 325 Mg Tab) 650 mg PO Q4H PRN PRN Reason: Pain (Mild 1-3)/fever Benzonatate (Benzonatate 100 Mg Cap) 100 mg PO TID PRN PRN Reason: Cough Dexamethasone (Dexamethasone 2 Mg Tab) 6 mg PO Q24H [facility] Last Admin: 09/09/21 15:19 Dose: 6 mg Documented by: Enoxaparin Sodium (Enoxaparin 40 Mg/0.4 Ml Syringe) 40 mg SUBCUT Q24H [facility] Last Admin: 09/09/21 15:20 Dose: 40 mg Documented by: Famotidine (Famotidine 20 Mg Tab) 30 mg PO BEDTIME [facility] Last Admin: 09/09/21 21:03 Dose: 30 mg Documented by: Famotidine (Famotidine 20 Mg Tab) 20 mg PO QAM [facility] Last Admin: 09/09/21 08:35 Dose: 20 mg Documented by: Guaifenesin/Dextromethorphan (Guaifenesin/Dextromethorphan 100-10 Mg/5 Ml Soln 10 Ml Cup) 10 ml PO Q4H PRN PRN Reason: Cough Last Admin: 09/08/21 08:25 Dose: 10 ml Documented by: Remdesivir 100 mg/ Sodium (Chloride) 100 mls @ 100 mls/hr IV Q24H [facility] Stop: 09/10/21 16:59 Last Admin: 09/09/21 15:20 Dose: 100 mls/hr Documented by: Lorazepam (Lorazepam 2 Mg/Ml Sdv) 0.5 mg IV Q6H PRN PRN Reason: Nausea/Vomiting Ondansetron HCl (Ondansetron 4 Mg Tab.Dis) 4 mg PO Q6H PRN PRN Reason: Nausea able to take PO Ondansetron HCl (Ondansetron 4 Mg/2 Ml Sdv) 4 mg IV Q4H PRN PRN Reason: Nausea/Vomiting Promethazine HCl (Promethazine 25 Mg Tab) 25 mg PO Q6H PRN PRN Reason: Nausea able to take PO Last Admin: 09/07/21 05:51 Dose: 25 mg Documented by: Sodium Chloride (Sodium Chloride 0.9% 10 Ml Syringe) 10 ml FLUSH ASDIRECTED PRN PRN Reason: Keep Vein Open Discontinued Medications Dexamethasone (Dexamethasone 4 Mg/Ml Sdv) 6 mg IVPUSH Q24H [facility] Last Admin: 09/07/21 17:56 Dose: 6 mg Documented by: Remdesivir 200 mg/ Sodium (Chloride) 250 mls @ 250 mls/hr IV ONETIME ONE Stop: 09/06/21 16:59 Last Admin: 09/06/21 16:30 Dose: 250 mls/hr Documented by: Potassium Chloride (Potassium Chloride 20 Meq Tab.Er) 40 meq PO BID [facility] Stop: 09/06/21 21:01 Last Admin: 09/06/21 20:58 Dose: 40 meq Documented by: - Exam General: Alert, Oriented, Cooperative, No Acute Distress HEENT: Pupils Equal, EOMI, Mucous Membr. Moist/[place] Neck: Supple, Trachea Midline Lungs: Clear to Auscultation, Normal Respiratory Effort Cardiovascular: Regular Rate, Regular Rhythm GI/Abdominal Exam: Normal Bowel Sounds, Soft, Non-Tender, No Distention Extremities: Normal Inspection, Non-Tender, No Pedal Edema Skin: Warm, Dry, Intact Neurological: No New Focal Deficit Psy/Mental Status: Alert, Normal Affect, Normal Mood - Patient Data Lab Results Last 24 hrs: Laboratory Results - last 24 hr 09/09/21 Range/Units 04:30 Sodium 146 (140-148) mmol/L Potassium 4.2 (3.6-5.2) mmol/L Chloride 107 (100-108) mmol/L Carbon Dioxide 28 (21-32) mmol/L Anion Gap 11.5 (5.0-14.0) mmol/L BUN 15 (7-18) mg/dL Creatinine 0.7 (0.6-1.0) mg/dL Est Cr Clr Drug Dosing 91.22 mL/min Estimated GFR (MDRD) > 60 (>60) Glucose 125 H (74-106) mg/dL Calcium 8.2 L (8.5-10.1) mg/dL Total Bilirubin 0.4 D (0.2-1.0) mg/dL AST 27 (15-37) U/L ALT 54 (12-78) U/L Alkaline Phosphatase 59 (46-116) U/L Total Protein 5.4 L (6.4-8.2) g/dL Albumin 2.8 L (3.4-5.0) g/dL Globulin 2.6 (2.3-3.5) g/dL Albumin/Globulin Ratio 1.1 L (1.2-2.2) Result Diagrams: 09/08/21 04:10 09/09/21 04:30 Sepsis Event Note - Evaluation Sepsis Screening Result: No Definite Risk - Focused Exam Vital Signs: Vital Signs Temp Pulse Resp BP Pulse Ox 09/09/21 19:33 97.6 F 67 16 133/80 95 09/09/21 19:22 94 L 09/09/21 15:16 97.1 F 73 16 139/78 93 L 09/09/21 13:46 95 09/09/21 11:38 97.6 F 70 18 148/78 H 92 L - Problem List & Annotations (1) Pneumonia due to COVID-19 virus SNOMED Code(s): 771359618219054576 Code(s): U07.1 - COVID-19; J12.82 - PNEUMONIA DUE TO CORONAVIRUS DISEASE 2019 Status: Acute Current Visit: Yes (2) Obesity with body mass index greater than 30 SNOMED Code(s): 905722845 Code(s): E66.9 - OBESITY, UNSPECIFIED Status: Chronic Current Visit: Yes - Problem List Review Problem List Initiated/Reviewed/Updated: Yes - Plan Plan:: ASSESSMENT AND PLAN - COVID-19 pneumonia-complicated by acute respiratory failure with hypoxia. She did receive monoclonal antibodies 09/04. Still mildly hypoxic but slowly im proving. D-dimer and CRP are normal or nearly normal. -Dexamethasone 6 mg every 24 hours (day3) -Remdesivir x5 days -Enoxaparin every 24 hours -Symptomatic management of cough -Supplement oxygen, wean as able -Covid isolation (symptom onset/positive test 08/28 and 08/30) Hypokalemia-likely due to extra gastrointestinal losses. Improved with supplementation. Obesity with BMI greater than 30- Maintenance issues - -DVT prophylaxis-enoxaparin -GI prophylaxis-H2 rhoda -Nutrition-regular Plan: We will finish her dose of remdesivir tomorrow afternoon and will go home afterwards. She will be sent home on 30 days worth of anticoagulation for her increased risk of clot. Disposition -I anticipate discharge home after the hospital stay, possibly in the next day or 2 with her current trend towards improvement Primary care physician -Dr. Jose Zurita, DO
[2021-09-10] MEDS: Famotidine 20 MG Tab PO SCH (10:07)
[2021-09-10] MEDS ORDERED: REMDESIVIR 100 MG in Sodium Chloride 0.9% 100 ML IV SCH (13:00)
--- NOTE | 2021-09-16 09:12 | PCM.DCSUM1 ---
Discharge Summary - Hospital Course Free Text/Narrative:: Ms. Garrido is a 56-year-old female without any significant past medical history who presented for worsening signs and symptoms of COVID-19. She had began having symptoms including sinus congestion, runny nose, headache, fever, and shortness of breath since August 28. She was seen by her physician and tested positive for COVID-19 on August 30. She was treated with monoclonal antibodies 2 days prior to admission. After the monoclonal antibody she began having diarrhea. She went to see her primary care physician who noted that she was hypoxic so they sent her to the hospital. She also had a chest x-ray done in the clinic which showed small patchy infiltrates. She was treated with remdesivir, enoxaparin, and Decadron. She had been feeling better by the third day and she was no longer requiring supplemental oxygen however she decided to stay to complete the total course of remdesivir. As she did not have any significant risk factors for blood clot. She was advised to take a full dose 325 mg aspirin daily for the next 30 days to prevent blood clot. She was not given a prescription for this as it is an [id number] medication. Diagnosis: Stroke: No Modified Rashi Scale: No Symptoms at All Modified Rashi Scale Score: 0 - Discharge Data Discharge Date: 09/10/21 Discharge Disposition: Home, Self-Care 01 Condition: Good - Referral to Home Health Primary Care Physician: Malia Hernández MD - Discharge Diagnosis/Problem(s) (1) Pneumonia due to COVID-19 virus SNOMED Code(s): 071597093124639160 ICD Code: U07.1 - COVID-19; J12.82 - PNEUMONIA DUE TO CORONAVIRUS DISEASE 2019 Status: Acute (2) Obesity with body mass index greater than 30 SNOMED Code(s): 992022480 ICD Code: E66.9 - OBESITY, UNSPECIFIED Status: Chronic - Patient Instructions Diet: Regular Diet as Tolerated Activity: As Tolerated Driving: May Drive Today Showering/Bathing: May Shower - Discharge Plan Home Medications: Home Meds Clobetasol [Clobetasol 0.05%] 30 gm TOP BID 09/06/21 [History] Famotidine 20 mg PO QAM 09/06/21 [History] Famotidine 30 mg PO BEDTIME 09/06/21 [History] Patient Handouts: COVID-19 Referrals: Lucia Velasquez LATCHER [Nurse Practitioner] - 09/13/21 10:45 am - Discharge Summary/Plan Comment DC Time >30 min.: No Total # of Minutes for Discharge Time: 20 - General Info Date of Service: 09/10/21 Admission Dx/Problem (Free Text: Admission Diagnosis/Problem Admission Diagnosis/Problem Pneumonia Subjective Update: On the day of discharge Ms. Garrido was feeling back to her regular self. She was having no difficulties breathing or other signs and symptoms of Covid. - Review of Systems General: Reports: No Symptoms HEENT: Reports: No Symptoms Pulmonary: Reports: No Symptoms Cardiovascular: Reports: No Symptoms Gastrointestinal: Reports: No Symptoms Genitourinary: Reports: No Symptoms Musculoskeletal: Reports: No Symptoms Skin: Reports: No Symptoms Neurological: Reports: No Symptoms Psychiatric: Reports: No Symptoms - Patient Data Vitals - Most Recent: Last Vital Signs Temp 97.9 F 09/10/21 10:02 Pulse 72 09/10/21 10:02 Resp 18 09/10/21 10:02 BP 131/69 09/10/21 10:02 Pulse Ox 94 L 09/10/21 13:25 Weight - Most Recent: 217 lb 0.016 oz Med Orders - Current: Current Medications Discontinued Medications Acetaminophen (Acetaminophen 325 Mg Tab) 650 mg PO Q4H PRN PRN Reason: Pain (Mild 1-3)/fever Benzonatate (Benzonatate 100 Mg Cap) 100 mg PO TID PRN PRN Reason: Cough Dexamethasone (Dexamethasone 4 Mg/Ml Sdv) 6 mg IVPUSH Q24H [facility] Last Admin: 09/07/21 17:56 Dose: 6 mg Documented by: Dexamethasone (Dexamethasone 2 Mg Tab) 6 mg PO Q24H [facility] Last Admin: 09/09/21 15:19 Dose: 6 mg Documented by: Enoxaparin Sodium (Enoxaparin 40 Mg/0.4 Ml Syringe) 40 mg SUBCUT Q24H [facility] Last Admin: 09/09/21 15:20 Dose: 40 mg Documented by: Famotidine (Famotidine 20 Mg Tab) 30 mg PO BEDTIME [facility] Last Admin: 09/09/21 21:03 Dose: 30 mg Documented by: Famotidine (Famotidine 20 Mg Tab) 20 mg PO QAM [facility] Last Admin: 09/10/21 10:07 Dose: 20 mg Documented by: Guaifenesin/Dextromethorphan (Guaifenesin/Dextromethorphan 100-10 Mg/5 Ml Soln 10 Ml Cup) 10 ml PO Q4H PRN PRN Reason: Cough Last Admin: 09/08/21 08:25 Dose: 10 ml Documented by: Remdesivir 100 mg/ Sodium (Chloride) 100 mls @ 100 mls/hr IV Q24H [facility] Stop: 09/10/21 16:59 Last Admin: 09/09/21 15:20 Dose: 100 mls/hr Documented by: Remdesivir 200 mg/ Sodium (Chloride) 250 mls @ 250 mls/hr IV ONETIME ONE Stop: 09/06/21 16:59 Last Admin: 09/06/21 16:30 Dose: 250 mls/hr Documented by: Remdesivir 100 mg/ Sodium (Chloride) 100 mls @ 100 mls/hr IV Q24H [facility] Stop: 09/10/21 13:59 Last Admin: 09/10/21 12:56 Dose: 100 mls/hr Documented by: Lorazepam (Lorazepam 2 Mg/Ml Sdv) 0.5 mg IV Q6H PRN PRN Reason: Nausea/Vomiting Ondansetron HCl (Ondansetron 4 Mg Tab.Dis) 4 mg PO Q6H PRN PRN Reason: Nausea able to take PO Ondansetron HCl (Ondansetron 4 Mg/2 Ml Sdv) 4 mg IV Q4H PRN PRN Reason: Nausea/Vomiting Potassium Chloride (Potassium Chloride 20 Meq Tab.Er) 40 meq PO BID [facility] Stop: 09/06/21 21:01 Last Admin: 09/06/21 20:58 Dose: 40 meq Documented by: Promethazine HCl (Promethazine 25 Mg Tab) 25 mg PO Q6H PRN PRN Reason: Nausea able to take PO Last Admin: 09/07/21 05:51 Dose: 25 mg Documented by: Sodium Chloride (Sodium Chloride 0.9% 10 Ml Syringe) 10 ml FLUSH ASDIRECTED PRN PRN Reason: Keep Vein Open - Exam Quality Assessment: Denies: Supplemental Oxygen General: Reports: Alert, Oriented HEENT: Reports: Pupils Equal, EOMI, Mucous Membr. Moist/[place] Neck: Reports: Supple Lungs: Reports: Clear to Auscultation, Normal Respiratory Effort Cardiovascular: Reports: Regular Rate, Regular Rhythm GI/Abdominal Exam: Normal Bowel Sounds, Soft, Non-Tender, No Organomegaly, No Distention, No Abnormal Bruit, No Mass, Pelvis Stable Extremities: Normal Inspection, Non-Tender, No Pedal Edema, Normal Capillary Refill Skin: Reports: Warm, Dry, Intact Neurological: Reports: No New Focal Deficit Psy/Mental Status: Reports: Alert, Normal Affect, Normal Mood
== END 2021-09-10 14:20 | disposition home or self-care (01) | DRG 137 ==
LOC: JP.2SS 12:21
PROVIDERS: ADMIT Internal Medicine; ATTEND Internal Medicine
PROC: XW033E5 Introduction of Remdesivir Anti-infective into Peripheral Vein, Percutaneous Approach, New Technology Group 5 (ICD-10-PCS; principal; 2021-09-06)
PROC: 8E0ZXY6 Isolation (ICD-10-PCS; 2021-09-06)
PROC: 3E0333Z Introduction of Anti-inflammatory into Peripheral Vein, Percutaneous Approach (ICD-10-PCS; 2021-09-06)
PROC: 3E0DX3Z Introduction of Anti-inflammatory into Mouth and Pharynx, External Approach (ICD-10-PCS; 2021-09-08)
DX: U07.1 COVID-19 (principal); J12.82 Pneumonia due to coronavirus disease 2019; J96.01 Acute respiratory failure with hypoxia; K21.9 Gastro-esophageal reflux disease without esophagitis; E87.6 Hypokalemia; E66.9 Obesity, unspecified; A08.39 Other viral enteritis; Z88.0 Allergy status to penicillin; Z88.8 Allergy status to other drugs, medicaments and biological substances
CPT/HCPCS: 36415; 80048; 80053; 85025; 85027; 85379; 86140; 94762; A9270-GY; J1100; J1650; J7050; J8540